=== PATIENT | female | born 1965 | race African-American/Black ===

== ENCOUNTER 2019-09-13 23:21 | Emergency (ER) | payer OTHER ==
[~2019-09-13] VITALS: Ht 165.1 cm; Wt 113.4 kg
[2019-09-13] MEDS ORDERED: TOPROL XL100 M1 (23:31)
[2019-09-14] MEDS ORDERED: ORPHENADRINE C100 MG PO (01:03)
[2019-09-14] MEDS ORDERED: DICLOFENAC SODI75 MG PO (01:03)
== END 2019-09-14 01:11 | disposition home or self-care (01) ==
LOC: ER 23:21
DX: M54.5 Low back pain (principal)